=== PATIENT | male | born 1950 | race Hispanic/Latino ===

== ENCOUNTER 2019-01-05 07:06 | Outpatient (CLI) | payer MEDICARE | END 2019-01-05 07:07 | disposition home or self-care (01) | LOC: C.LAB 07:06 | DX: I10 Essential (primary) hypertension (principal); R91.1 Solitary pulmonary nodule; Z13.0 Encounter for screening for diseases of the blood and blood-forming organs and certain disorders involving the immune mechanism; E78.00 Pure hypercholesterolemia, unspecified; N40.0 Benign prostatic hyperplasia without lower urinary tract symptoms ==

== ENCOUNTER 2019-01-24 08:57 | Outpatient (CLI) | payer OTHER | END 2019-01-24 08:58 | disposition home or self-care (01) | LOC: C.RADH 08:57 | DX: Z57.9 Occupational exposure to unspecified risk factor (principal) ==

== ENCOUNTER → 2019-03-08 | Outpatient (CLI) | payer MEDICARE | LOC: C.RADH 07:07 | DX: E55.9 Vitamin D deficiency, unspecified (principal); E03.9 Hypothyroidism, unspecified; E78.00 Pure hypercholesterolemia, unspecified; I10 Essential (primary) hypertension ==